=== PATIENT | female | born 1965 | race Hispanic/Latino ===

== ENCOUNTER 2019-09-13 10:09 | Emergency (ER) | payer BC ==
--- NOTE | 2019-09-13 11:33 | RAD ---
XR Pelvis AP STANDARD History: Trauma. Fall Comparison: None. Findings: No acute fracture or malalignment. There are erosive changes evaluation bilaterally, greate r on the left. Small bilateral acetabular osteophyte formation. Synovial herniation pits at both femoral head/neck j unctions. SI joints are unremarkable. Impression: 1. Erosive changes of the ischium bilaterally, greater on the left, may be sequelae of underlying ham string tendinosis/tearing. 2. Synovial herniation pits of both femoral head/neck junctions suggesting a component of femoral danielle tabular impingement. 3. No acute fracture.
--- NOTE | 2019-09-13 11:57 | ULT ---
EXAM: Bilateral lower extremity venous Doppler US HISTORY: bilateral lower extremity edema and pain FINDINGS: Grayscale, color-flow, Doppler evaluation, spectral analysis of the bilateral lower extremities venou s structures is performed with 2-D imaging. The bilateral common femoral, superficial femoral, popliteal, posterior tibial, proximal greater saphenous and profunda femoral veins are imaged. There is normal luminal compressibility, flow, and augmentation in the visualized deep venous structu res of the bilateral lower extremities. IMPRESSION: No evidence of a deep vein thrombosis in either lower extremity.
== END 2019-09-13 13:28 | disposition home or self-care (01) ==
LOC: ERS 10:09
DX: S79.922A Unspecified injury of left thigh, initial encounter (principal); I10 Essential (primary) hypertension; W01.0XXA Fall on same level from slipping, tripping and stumbling without subsequent striking against object, initial encounter
CPT/HCPCS: 72170; 93970

== ENCOUNTER 2020-03-20 13:25 | Observation (INO) | payer BC ==
--- NOTE | 2020-03-20 13:45 | RAD ---
EXAM: Single view of the chest HISTORY: Chest pain COMPARISON: None FINDINGS: Single view of the chest shows a normal sized cardiomediastinal silhouette. There is no dia dence of consolidation, mass, or pleural effusion. The bones are unremarkable. IMPRESSION: No evidence of acute cardiopulmonary disease
[2020-03-20 14:16] LABS: #Basophils 0.1 thou/uL (0.0-0.2); #Eosinphils 0.3 thou/uL (0.0-0.7); #Lymphocytes 3.6 thou/uL (1.20-3.40); #Monocytes 0.5 thou/uL (0.11-0.59); #Neutrophils 4.6 thou/uL (1.40-6.50); %Basophils 1.3 % (0.0-1.0); %Eosinophils 3.3 % (0.0-10.0); %Lymphocytes 39.5 % (21.0-51.0); %Monocytes 5.8 % (0.0-10.0); %Neutrophils 50.1 % (42.0-75.0); Hemoglobin 14.5 g/dL (12.0-16.0); Mean Corpuscular HGB CONC 34.3 g/dL (32.0-36.0); Mean Corpuscular Hemoglobin 31.4 pg (27.0-31.0); Mean Corpuscular Volume 91.7 fL (78.0-98.0); Mean Platelet Volume 9.2 fL (7.4-10.4); Platelet Count 216 thou/uL (130-400); RBC Distribution Width 12.1 % (11.5-14.5); Red Blood Cell (RBC) Count 4.61 mill/uL (4.20-5.40); White Blood Cell (WBC) Count 9.1 thou/uL (4.8-10.8)
[2020-03-20 14:41] LABS: ALT (SGPT) 49 U/L (8-55); AST (SGOT) 32 U/L (5-34); Albumin 4.4 g/dL (3.5-5.0); Alkaline Phosphatase 106 U/L (40-110); Anion Gap 12 mmol/L (10-20); BUN (Urea Nitrogen) 15 mg/dL (9.8-20.1); Bilirubin, Total 0.3 mg/dL (0.2-1.2); CK (CPK) 158 U/L (29-168); Calc. Creatinine Clearance 0 mL/min (70-130); Calcium 9.5 mg/dL (7.8-10.44); Carbon Dioxide 26 mmol/L (22-29); Chloride 106 mmol/L (98-107); Estimated GFR-MDRD 74; Globulin 3.7 g/dL (2.4-3.5); Glucose 108 mg/dL (70-105); Potassium 3.6 mmol/L (3.5-5.1); Protein, Total 8.1 g/dL (6.0-8.3); Sodium 140 mmol/L (136-145)
[2020-03-20] MEDS ORDERED: Acetaminophen 500 MG TAB ONE (15:13)
[2020-03-20] MEDS ORDERED: Aspirin Chewable 81 MG TAB ONE (15:13)
[2020-03-20] MEDS ORDERED: Metoclopramide HCl 10 MG/2 ML VIAL ONE (15:13)
[2020-03-20] MEDS ORDERED: Nitroglycerin 2% Ointment 1 INCH/1 GM Packet ONE (17:32)
[2020-03-20] MEDS ORDERED: Nitroglycerin 0.4 MG TAB (25 Tab Bottle) PO PRN (18:31)
[2020-03-20] MEDS ORDERED: hydrALAZINE 20 MG/ML VIAL SLOW IVP PRN ×3 (18:33→19:15)
[2020-03-20] MEDS ORDERED: Labetalol HCl 100 MG/20 ML VIAL SLOW IVP PRN ×3 (18:33→19:16)
[2020-03-20] MEDS ORDERED: Calcium Carbonate 500 MG ChewTAB PO PRN (18:34)
[2020-03-20] MEDS ORDERED: Acetaminophen 325 MG TAB PO PRN (18:34)
[2020-03-20] MEDS ORDERED: Senokot S 8.6-50 MG TAB PO PRN (18:34)
[2020-03-20] MEDS ORDERED: Ondansetron ODT 4 MG TAB PO PRN (18:34)
[2020-03-20] MEDS ORDERED: Ondansetron PF 4 MG/2 ML Vial IVP PRN (18:34)
[2020-03-20 18:40] LABS: Troponin I Less than 0.010 ng/mL (< 0.028)
--- NOTE | 2020-03-20 19:44 | HP ---
PRIMARY CARE PHYSICIAN: None. CHIEF COMPLAINT: Headache and chest pain. HISTORY OF PRESENT ILLNESS: The patient is a 55-year-old female with a past medical history significant for hypertension and obesity, who presents to the ER for the above complaint. The patient reports development of headache over the past several days. She describes the headache as generalized and aching, exacerbated and relieved by nothing. She denies any vision changes, focal deficits or speech impairments. She reports that the onset was gradual and has been increasing over the past several days. Then this morning while tossing chicken breasts into a bucket, she developed acute onset of chest pain, location is substernal, radiating to her left upper extremity. She describes the pain as sharp and shooting "poking pain" exacerbated and relieved by nothing. She denies any heart palpitations or swelling to her lower extremities. She denies any shortness of breath or recent cough. She denies any recent fever or chills. She denies any abdominal pain, nausea, vomiting, or diarrhea. For these reasons, she came to the ER. On presentation to the ER, the patient was found to be hypertensive with a blood pressure of 237/ 120 with a normal pulse, normal respirations, normal oxygen saturation. EKG was normal. First troponin was normal. CK was 158. Chest x-ray was negative and CMP and CBC were unremarkable. She was given nitroglycerin paste 1 inch, full-dose aspirin, Reglan, and Tylenol, after which symptoms resolved. PAST MEDICAL HISTORY: 1. Hypertension. 2. Obesity. PAST SURGICAL HISTORY: 1. . 2. Left oophorectomy. SOCIAL HISTORY: The patient lives in [place] alone at home. She has no history of smoking, alcohol, or illicit drug use. She works at [employer]. FAMILY HISTORY: Noncontributory for cardiac disease, noncontributory for pulmonary disease. ALLERGIES: NO KNOWN ALLERGIES. MEDICATIONS: No home medications. REVIEW OF SYSTEMS: All review of systems are negative unless otherwise stated in the HPI. PHYSICAL EXAMINATION: VITAL SIGNS: The patient's temperature 98.8, blood pressure 164/101, pulse 88, respirations 18, 99% on room air. Pain scale 0/10. CONSTITUTIONAL: The patient is alert and oriented to person, place, and time. She is nontoxic. She appears comfortable. She is hypertensive with a regular pulse , regular respirations. HEENT: Head, atraumatic and normocephalic. Eyes, PERRLA, extraocular muscles intact. Sclerae nonicteric. ENT: TMs intact bilaterally. Nares patent bilaterally. Oropharynx is clear. Uvula midline. Moist mucous membranes. No oral lesions. NECK: Soft, supple. Trachea midline. No JVD. No cervical pain. Full range of motion. RESPIRATORY/CHEST: Respirations are even and unlabored. Clear to auscultation. No rhonchi, wheezes, or rales. CHEST/CARDIAC: S1 and S2 appreciated. No murmurs, rubs, or gallops. ABDOMEN: Soft, nontender. Active bowel sounds. No guarding, no rigidity, no rebound. Negative Rovsing sign. Negative Zamudio sign. No abdominal bruit auscultated. EXTREMITIES: Bilateral upper extremities, full range of motion. Strength normal. Sensation intact. Palpable radial pulses. Lower extremities; full range of motion. Strength normal. Sensation intact. Palpable pedal pulses. No swelling. BACK: Full range of motion. No central spinous tenderness. No CVA tenderness. NEURO: The patient is alert and oriented to person, place, and time. Cranial nerves 2 through 12 are intact. No focal deficits. Normal gait. PSYCH: Normal affect. Oriented to person, place, and time. No suicidal, homicidal ideation. LABORATORY DATA AND DIAGNOSTICS: EKG, normal sinus rhythm, 86 beats per minute. Troponin negative. CK 158. Chest x-ray negative. Sodium 140, potassium 3.6, chloride 106, CO2 is 26, BUN 15, creatinine 0.80, glucose 108, calcium 9.5, total bilirubin 0.3, AST 32, ALT 49, alkaline phosphatase 106, albumin 4.4. WBCs 9.1, hemoglobin 14.5, hematocrit 42.3, platelets 216. IMPRESSION AND PLAN: 1. Hypertensive urgency. We will admit the patient to telemetry for observation status. Expected length of stay less than two midnights. The patient's blood pressure is currently down with an SBP in the 160s. She is asymptomatic. We will continue to monitor blood pressure. We will slowly reduce blood pressure over the next 24 hours. We will start on Procardia XL and add p.r.n. hydralazine and labetalol as needed. 2. Chest pain. HEART score of 3, Wells' score of 0. Chest pain is currently resolved after getting nitroglycerin paste and aspirin in the ER. We will continue to trend troponins. We will check a TSH, fasting lipid, magnesium, and BNP. The patient's consortium score is 19%, low risk. We will continue aspirin, hold nitroglycerin secondary to headache. Might consider HEADLINE WRITER if results indicate, but could likely perform on outpatient basis. 3. Hypertension. The patient has a history of hypertension. She does not take any home medications for this. She has not seen her PCP in the past 2 years. We will continue to monitor blood pressure and start on CCB. 4. Obesity. 5. SCDs for deep vein thrombosis prophylaxis, Pepcid for gastrointestinal prophylaxis. The patient is a full code. Her contact is going to be [place] #[phone]. Discussed the case with Dr. Bradford. Job ID: [id number]
[2020-03-20] MEDS ORDERED: NIFEdipine XL 30 MG TAB PO SCH (21:00)
[2020-03-20 21:55] LABS: Troponin I Less than 0.010 ng/mL (< 0.028)
[2020-03-20] MEDS ORDERED: Nitroglycerin 2% Ointment 1 INCH/1 GM Packet TOP SCH (22:00)
[2020-03-21 04:51] LABS: #Basophils 0.1 thou/uL (0.0-0.2); #Eosinphils 0.3 thou/uL (0.0-0.7); #Lymphocytes 2.9 thou/uL (1.20-3.40); #Monocytes 0.7 thou/uL (0.11-0.59); #Neutrophils 3.8 thou/uL (1.40-6.50); %Basophils 1.2 % (0.0-1.0); %Eosinophils 3.7 % (0.0-10.0); %Lymphocytes 37.2 % (21.0-51.0); %Monocytes 8.7 % (0.0-10.0); %Neutrophils 49.2 % (42.0-75.0); Hemoglobin 13.4 g/dL (12.0-16.0); Mean Corpuscular HGB CONC 33.5 g/dL (32.0-36.0); Mean Corpuscular Hemoglobin 30.8 pg (27.0-31.0); Mean Platelet Volume 9.5 fL (7.4-10.4); Platelet Count 200 thou/uL (130-400); RBC Distribution Width 12.1 % (11.5-14.5); Red Blood Cell (RBC) Count 4.34 mill/uL (4.20-5.40); White Blood Cell (WBC) Count 7.8 thou/uL (4.8-10.8)
[2020-03-21 05:15] LABS: Anion Gap 11 mmol/L (10-20); BUN (Urea Nitrogen) 16 mg/dL (9.8-20.1); Calc. Creatinine Clearance 0 mL/min (70-130); Calcium 8.9 mg/dL (7.8-10.44); Carbon Dioxide 26 mmol/L (22-29); Cardiac Risk 3.8 (Less than 4.5); Chloride 107 mmol/L (98-107); Cholesterol 194 mg/dl (< 200 Desired); Estimated GFR-MDRD 77; Glucose 107 mg/dL (70-105); HDL Cholesterol 51 mg/dL (>60 Neg Risk); LDL Cholesterol, Calculated 115 mg/dL; Potassium 3.8 mmol/L (3.5-5.1); Sodium 140 mmol/L (136-145); Triglycerides 139 mg/dL (Less than 150)
[2020-03-21] MEDS ORDERED: Aspirin 81 mg Enteric Coated Tablet PO SCH (09:00)
[2020-03-21 12:17] VITALS: BP 119/60; TEMP 97.9
--- NOTE | 2020-03-21 18:09 | DIS ---
DATE OF ADMISSION: 03/20/2020 DATE OF DISCHARGE: 03/21/2020 DISCHARGE DISPOSITION: Home. FOLLOWUP: 1. Follow up with primary care physician at [facility] in 1 week. 2. Follow up with Dr. Slater in 1 to 2 weeks. ALLERGIES: NO KNOWN DRUG ALLERGIES. DISCHARGE MEDICATIONS: 1. Amlodipine 5 mg daily. 2. Lisinopril 2.5 mg daily. The patient was seen and examined on the day of discharge. Denies any new complaints. No chest pain, shortness of breath, or palpitations reported. DIAGNOSTIC TESTS: Fasting lipid profile showed cholesterol 194 with LDL 115, HDL of 51, triglyceride 139. TSH was 1.9. Creatinine was 0.78. Echocardiogram showed left ventricular ejection fraction of greater than 60% to 65% with mild tricuspid regurgitation, mild pulmonic regurgitation. Chest x-ray was negative for infiltrate. BRIEF HOSPITAL COURSE: The patient is a 55-year-old female with hypertension and obesity, presented to the hospital with generalized headaches along with intermittent chest discomfort. Her blood pressure in the emergency room was 237/120. She was monitored on the telemetry unit. She was started on as needed antihypertensives. She will be discharged home on amlodipine with lisinopril. Echocardiogram was obtained as discussed above. She will follow up with Dr. Slater for outpatient stress test. She was extensively counseled on hypertension as well as medication compliance. Side effects of medications were discussed. She will benefit from a repeat basic metabolic profile after 2 weeks. Lifestyle modification was emphasized. She was advised to monitor blood pressure on a daily basis and to maintain a log. FINAL DIAGNOSES: 1. Hypertensive urgency. 2. Headaches due to above. 3. Noncardiac chest discomfort secondary to uncontrolled hypertension, resolved. Troponins were negative. 4. History of hypertension. 5. Obesity. 6. Chronic kidney disease, stage 2. The patient understands the above plan of care. Job ID: [id number]
[2020-03-21] MEDS ORDERED: Amlodipine 5 MG TAB PO SCH (21:00)
== END 2020-03-21 15:45 | disposition home or self-care (01) ==
LOC: ERS 13:25 → 2NO 17:59
PROVIDERS: ADMIT Internal Medicine; ATTEND Internal Medicine
DX: I16.0 Hypertensive urgency (principal); I12.9 Hypertensive chronic kidney disease with stage 1 through stage 4 chronic kidney disease, or unspecified chronic kidney disease; N18.2 Chronic kidney disease, stage 2 (mild); R51 Headache; R07.89 Other chest pain; E66.9 Obesity, unspecified
CPT/HCPCS: 36415; 71045; 80048; 80053; 80061; 82550; 83735; 83880; 84443; 84484; 85025; 93005; 93306; 94760; 96365; G0378; J2765

== ENCOUNTER 2020-10-09 14:09 | Outpatient (CLI) | payer BC ==
--- NOTE | 2020-10-09 14:35 | RAD ---
Left wrist 3 views HISTORY: Injury. FINDINGS: Scaphoid waist and ulnar styloid are intact. Mild ulna negative variant. Subcortical cyst n oted near the scaphoid waist. Mild osteoarthritic changes throughout the wrist. No acute fracture, dislocation, or aggressive osseous erosions. IMPRESSION : No acute abnormalities are demonstrated.
== END 2020-10-09 14:10 | disposition home or self-care (01) ==
LOC: BICRAD 14:09
PROVIDERS: ATTEND Family Medicine
DX: S60.212A Contusion of left wrist, initial encounter (principal)